=== PATIENT | female | born 1970 | race Asian ===

== ENCOUNTER 2023-03-27 06:46 | Emergency (ER) | payer OTHER ==
[~2023-03-27] VITALS: Ht 162.6 cm; Wt 88.9 kg
[2023-03-27 06:51] VITALS: BP_SYST 159; PULSE 102; RESP 19; TEMP 98; O2SAT 97
[2023-03-27 07:32] VITALS: BP_SYST 136; PULSE 97; RESP 18; TEMP 97.7; O2SAT 96
== END 2023-03-27 07:45 | disposition home or self-care (01) ==
LOC: SED 06:46
DX: R04.0 Epistaxis (principal); E11.9 Type 2 diabetes mellitus without complications; I10 Essential (primary) hypertension; Z79.899 Other long term (current) drug therapy
CPT/HCPCS: 99281